=== PATIENT | female | born 1990 | race Caucasian/White ===

== ENCOUNTER 2025-06-27 17:44 | Emergency (ER) | payer MEDICARE ==
[2025-06-27] MEDS ORDERED: Albuterol 2.5 MG (3 mL) NEB ONE (19:49)
[2025-06-27] MEDS ORDERED: Famotidine 20 MG TAB ONE (19:54)
[2025-06-27 20:30] LABS: ALV-art Gradient 8.130 mmHg (0-20); Actual Bicarbonate (HCO3a) 22.3 mEq/L (22-28); Analyzer IN Cardio CS ER; Base Excess (BEa) -1.7 mEq/L (-2.0 to +3.0); CO2 Tension 35.6 mmHg (35.0-45.0); Calcium, Ionized (arterial) 1.16 mmol/L (1.12-1.30); Hematocrit-ABG 40 % (36.0-47.0); Hemoglobin (Hb) 13.7 g/dL (12.0-16.0); O2 Tension (PaO2), arterial 97.1 mmHg (80.0-100.0); Potassium - ABG Lab 3.78 mmol/L (3.70-5.30); Puncture Site Left Radial artery; pH, Arterial 7.415 (7.35-7.45)
[2025-06-27 21:17] LABS: ALT (SGPT) 66 U/L (Less than 34); AST (SGOT) 64 U/L (11-34); Albumin 4.0 g/dL (3.1-4.5); Alkaline Phosphatase 64 U/L (40-110); Anion Gap 15 mmol/L (10-20); BUN (Urea Nitrogen) 12 mg/dL (7.0-18.7); Bilirubin, Total 0.3 mg/dL (0.3-1.2); Calc. Creatinine Clearance 0 mL/min (70-130); Calcium 8.7 mg/dL (7.8-10.44); Carbon Dioxide 19 mmol/L (22-29); Chloride 106 mmol/L (98-107); Globulin 3.1 g/dL (2.4-3.5); Glucose 230 mg/dL (70-105); Potassium 3.7 mmol/L (3.5-5.1); Sodium 136 mmol/L (136-145)
[2025-06-27] MEDS ORDERED: cefTRIAXone (ROCEPHIN) 1 GM VIAL ONE (22:23)
== END 2025-06-27 22:30 | disposition home or self-care (01) ==
LOC: CSHERS 17:44
DX: J11.00 Influenza due to unidentified influenza virus with unspecified type of pneumonia (principal); E86.0 Dehydration; E66.01 Morbid (severe) obesity due to excess calories; I10 Essential (primary) hypertension; F17.210 Nicotine dependence, cigarettes, uncomplicated; F17.290 Nicotine dependence, other tobacco product, uncomplicated; Z86.73 Personal history of transient ischemic attack (TIA), and cerebral infarction without residual deficits
CPT/HCPCS: 36600; 71250; 80053; 82805; 83605; 87428; 94640; 94760; 96372; 99284; J0696; J7611